=== PATIENT | female | born 1970 | race Caucasian/White ===

== ENCOUNTER 2022-03-17 20:55 | Inpatient (IN) | payer OTHER ==
[~2022-03-17] VITALS: Ht 157.5 cm; Wt 127.0 kg
[~2022-03-17 20:55] MED LIST: BACTRIM DS TAB1 EACH PO; KEFLEX500 MG PO
[2022-03-17 22:30] LABS: BASOPHIL 0.2 % (0-2); HCT 44.7 % (37.0-47.0); HGB 14.1 g/dl (12.5-16.0); LYMPHOCYTE 16.5 % (15-48); MCH 29.5 pg (25.0-31.0); MCHC 31.5 g/dL (32.0-36.0); MCV 93.5 fL (78.0-100.0); MONOCYTE 7.4 % (0-12); MPV 8.9 fL (6.0-9.5); NEUTROPHIL 71.5 % (41-80); NRBC 0; PLT 168 K/uL (150-400); RBC 4.78 M/uL (4.20-5.40); RDW 14.9 % (11.5-14.0)
[2022-03-17 22:42] LABS: INR 1.1 (0.9-1.2); PROTHROMBIN TIME 13.9 SECONDS (11.9-13.9)
[2022-03-17 22:56] LABS: BILIRUBIN - TOTAL 1.6 mg/dL (0.2-1.0); BUN/CREAT RATIO (CALC) 8.8 RATIO; CREATININE 0.91 mg/dL (0.51-0.95); GLOBULIN (CALCULATION) 3.7 g/dL; POTASSIUM 2.8 mmol/L (3.5-5.1); TOTAL PROTEIN 7.7 g/dL (6.4-8.2)
[2022-03-17 23:07] LABS: INFLUENZA A NAA NEGATIVE (NEGATIVE)
[2022-03-17 23:08] LABS: CORONAVIRUS 2019 SARS-COV-2 POSITIVE (NEGATIVE)
[2022-03-18] MEDS ORDERED: VENTOLIN (2.5 MG/3 M INH (07:03)
[2022-03-18] MEDS ORDERED: BREO ELLIPTA 11 EACH INH (07:06)
[2022-03-18] MEDS ORDERED: SPIRIVA RESPIMAT4 GM INH (07:09)
[2022-03-18] MEDS ORDERED: FEOSOL325 MG PO (07:09)
[2022-03-18] MEDS ORDERED: PEPCID AC20 MG PO (07:10)
[2022-03-18] MEDS ORDERED: PAXIL40 MG PO (07:11)
[2022-03-18] MEDS ORDERED: TRAZODONE 50MG50 MG PO (07:13)
[2022-03-18] MEDS ORDERED: DEMADEX20 MG PO (07:15)
[2022-03-18] MEDS ORDERED: DIGITEK125 MCG PO (07:15)
[2022-03-18] MEDS ORDERED: DALIRESP500 MCG PO (07:16)
[2022-03-18] MEDS ORDERED: LIPITOR40 MG PO (07:17)
[2022-03-18] MEDS ORDERED: TOPROL XL 25MG25 MG PO (07:18)
[2022-03-18] MEDS ORDERED: ATARAX25 MG PO (07:18)
[2022-03-18] MEDS ORDERED: CARTIA XT120 MG PO (07:20)
[2022-03-18] MEDS ORDERED: MINOCYCLINE HCL50 MG PO (07:21)
[2022-03-18] MEDS ORDERED: KLOR-CON M2020 MEQ PO (07:23)
[2022-03-18] MEDS ORDERED: LINZESS290 MCG PO (07:24)
[2022-03-18 07:39] LABS: MAGNESIUM 1.7 mg/dL (1.8-2.4); TOTAL PROTEIN 7.3 g/dL (6.4-8.2)
[2022-03-18 15:45] LABS: CREATININE 0.82 mg/dL (0.51-0.95); POTASSIUM 3.5 mmol/L (3.5-5.1)
[2022-03-19 06:08] LABS: HCT 42.1 % (37.0-47.0); HGB 13.5 g/dl (12.5-16.0); MCH 29.4 pg (25.0-31.0); MCHC 32.1 g/dL (32.0-36.0); MCV 91.7 fL (78.0-100.0); MPV 9.9 fL (6.0-9.5); RBC 4.59 M/uL (4.20-5.40); RDW 14.6 % (11.5-14.0); WBC 5.7 K/uL (4.0-10.5)
[2022-03-19 07:07] LABS: BUN/CREAT RATIO (CALC) 13.3 RATIO; CREATININE 0.83 mg/dL (0.51-0.95); MAGNESIUM 1.7 mg/dL (1.8-2.4); POTASSIUM 3.3 mmol/L (3.5-5.1)
--- NOTE | 2022-03-19 18:44 | NUR ---
SHIFT ASSESSMENT CHARTING BY GLO CULP, NURSE SHIFT SUPERVISOR MELTING, REVIEWED AND CONFIRMED.
[2022-03-20 05:50] LABS: BASOPHIL 0.1 % (0-2); EOSINOPHIL 0 % (0-5); HCT 44.1 % (37.0-47.0); HGB 13.7 g/dl (12.5-16.0); LYMPHOCYTE 6.2 % (15-48); MCH 29.1 pg (25.0-31.0); MCHC 31.1 g/dL (32.0-36.0); MCV 93.8 fL (78.0-100.0); MONOCYTE 6.2 % (0-12); NEUTROPHIL 86.9 % (41-80); NRBC 0; PLT 200 K/uL (150-400); RDW 14.7 % (11.5-14.0); WBC 9.6 K/uL (4.0-10.5)
[2022-03-20 06:07] LABS: HBSAG SCREEN Negative (Negative); HCV AB 0.2 (0.0-0.9); HEP A AB, IGM Negative (Negative); HEP B CORE AB, IGM Negative (Negative)
[2022-03-20 06:11] LABS: ALBUMIN 3.5 g/dL (3.4-5.0); BILIRUBIN - TOTAL 1.3 mg/dL (0.2-1.0); BUN/CREAT RATIO (CALC) 18.9 RATIO; CREATININE 0.9 mg/dL (0.51-0.95); GLOBULIN (CALCULATION) 3.3 g/dL; MAGNESIUM 2.2 mg/dL (1.8-2.4); POTASSIUM 4.7 mmol/L (3.5-5.1); TOTAL PROTEIN 6.8 g/dL (6.4-8.2)
--- NOTE | 2022-03-20 14:24 | NUR ---
03/20/22 Ms. Kam lives at home with her sister, BF, son, son's GF and their baby. She has a trilogy at 7 L, portable tank, manual wc, rw, and 3in1. - Ms. Kam receives her DME from [facility]. She has requested a new manual wc. - Ms. Kam states that her family members care for her when asked if she has HH. - [employer] will investigate to see if Ms. Kam is eligible for a new manual wc. [employer] will inform Ms. Kam of the outcome of the investigation.
[2022-03-21 06:11] LABS: BASOPHIL 0.1 % (0-2); EOSINOPHIL 0 % (0-5); HCT 41.8 % (37.0-47.0); HGB 13.1 g/dl (12.5-16.0); LYMPHOCYTE 5.3 % (15-48); MCH 29.1 pg (25.0-31.0); MCHC 31.3 g/dL (32.0-36.0); MCV 92.9 fL (78.0-100.0); MONOCYTE 5.5 % (0-12); MPV 10.2 fL (6.0-9.5); NEUTROPHIL 88.4 % (41-80); NRBC 0; PLT 193 K/uL (150-400); RDW 14.6 % (11.5-14.0)
[2022-03-21 06:34] LABS: BUN/CREAT RATIO (CALC) 17.9 RATIO; CREATININE 0.95 mg/dL (0.51-0.95); MAGNESIUM 2.1 mg/dL (1.8-2.4); POTASSIUM 3.8 mmol/L (3.5-5.1)
[2022-03-21 09:32] LABS: FT4 (FREE T4) 1.2 ng/dL (0.76-1.46)
[2022-03-22 06:21] LABS: BUN/CREAT RATIO (CALC) 18.8 RATIO; CREATININE 0.96 mg/dL (0.51-0.95); MAGNESIUM 2.2 mg/dL (1.8-2.4); POTASSIUM 3.7 mmol/L (3.5-5.1)
[2022-03-22 06:39] LABS: BASOPHIL 0.1 % (0-2); EOSINOPHIL 0.1 % (0-5); HCT 43.7 % (37.0-47.0); HGB 13.8 g/dl (12.5-16.0); MCH 28.9 pg (25.0-31.0); MCHC 31.6 g/dL (32.0-36.0); MCV 91.4 fL (78.0-100.0); MONOCYTE 5.9 % (0-12); MPV 10.5 fL (6.0-9.5); NEUTROPHIL 88.4 % (41-80); NRBC 0; PLT 197 K/uL (150-400); RBC 4.78 M/uL (4.20-5.40); RDW 14.3 % (11.5-14.0); WBC 9.9 K/uL (4.0-10.5)
[2022-03-23 07:22] LABS: CREATININE 0.95 mg/dL (0.51-0.95); POTASSIUM 3.4 mmol/L (3.5-5.1)
[2022-03-23] MEDS ORDERED: DEMADEX20 MG PO (13:34)
[2022-03-23] MEDS ORDERED: KLOR-CON M2020 MEQ PO (13:34)
[2022-03-23] MEDS ORDERED: AMIODARONE HCL200 MG PO (20:56)
== END 2022-03-23 14:06 | disposition home or self-care (01) | DRG 177 ==
LOC: FER 20:55 → FTCU 03-18 05:09
PROVIDERS: Emergency Medicine; Internal Medicine; Nurse Practitioner Acute Care; Nurse Practitioner Family; Physician Assistant; ADMIT Internal Medicine
PROC: XW033E5 Introduction of Remdesivir Anti-infective into Peripheral Vein, Percutaneous Approach, New Technology Group 5 (ICD-10-PCS; principal; 2022-03-17)
PROC: 3E0333Z Introduction of Anti-inflammatory into Peripheral Vein, Percutaneous Approach (ICD-10-PCS; 2022-03-17)
PROC: 8E0ZXY6 Isolation (ICD-10-PCS; 2022-03-18)
PROC: B24BZZZ Ultrasonography of Heart with Aorta (ICD-10-PCS; 2022-03-18)
PROC: 5A09457 Assistance with Respiratory Ventilation, 24-96 Consecutive Hours, Continuous Positive Airway Pressure (ICD-10-PCS; 2022-03-18)
PROC: 05HY33Z Insertion of Infusion Device into Upper Vein, Percutaneous Approach (ICD-10-PCS; 2022-03-20)
PROC: 5A09357 Assistance with Respiratory Ventilation, Less than 24 Consecutive Hours, Continuous Positive Airway Pressure (ICD-10-PCS; 2022-03-20)
DX: U07.1 COVID-19 (principal); I50.23 Acute on chronic systolic (congestive) heart failure; J96.21 Acute and chronic respiratory failure with hypoxia; R18.8 Other ascites; I47.2 Ventricular tachycardia; I48.20 Chronic atrial fibrillation, unspecified; J44.1 Chronic obstructive pulmonary disease with (acute) exacerbation; Z68.43 Body mass index [BMI] 50.0-59.9, adult; I42.9 Cardiomyopathy, unspecified; I31.3 Pericardial effusion (noninflammatory); J98.11 Atelectasis; I27.29 Other secondary pulmonary hypertension; I50.810 Right heart failure, unspecified; K76.1 Chronic passive congestion of liver; I07.1 Rheumatic tricuspid insufficiency; G47.33 Obstructive sleep apnea (adult) (pediatric); F32.9 Major depressive disorder, single episode, unspecified; F41.9 Anxiety disorder, unspecified; E87.6 Hypokalemia; E66.01 Morbid (severe) obesity due to excess calories; K21.9 Gastro-esophageal reflux disease without esophagitis; I11.0 Hypertensive heart disease with heart failure; D50.9 Iron deficiency anemia, unspecified; I49.3 Ventricular premature depolarization; I49.8 Other specified cardiac arrhythmias; K58.9 Irritable bowel syndrome, unspecified; I25.2 Old myocardial infarction; Z99.81 Dependence on supplemental oxygen; Z90.49 Acquired absence of other specified parts of digestive tract; Z98.51 Tubal ligation status; Z87.891 Personal history of nicotine dependence; Z88.5 Allergy status to narcotic agent; Z79.899 Other long term (current) drug therapy; Z82.49 Family history of ischemic heart disease and other diseases of the circulatory system
CPT/HCPCS: 36415; 36600; 71250; 80048; 80053; 80074; 82728; 82803; 83540; 83735; 83880; 84145; 84155; 84439; 84443; 84484; 85025; 85610; 93005; 94640; 94760; 94762; C1751; C9399; J0282; J1100; J1650; J1940; J3475; J7050; J7060; J8540; U0002